=== PATIENT | female | born 1950 | race Caucasian/White ===

== ENCOUNTER → 2017-03-11 | Outpatient (CLI) | payer MEDICARE, OTHER ==
[~2017-03-11] MED LIST: ASPI81TA27 PO; ATOR80TA PO; CHOL500021 PO; CHOLPOW PO; CYCL1TAB18 PO; EST0625T PO; FLUO20CA19 PO; HYDR-2457 PO; IOHEXOL 350 MG/ML 100ML IJ ONE; LISI-285 PO; POTA10TA51 PO; READI-CAT 2 (BARIUM SULF)(VANILLA SMOOTHIE) 450ML ONE; TICA90TA PO; ZOLP10TA PO
[2017-03-11 10:50] VITALS: BP 129/71
[2017-03-11 11:40] VITALS: BP 137/84
== END | disposition home or self-care (01) ==
LOC: Rad HDHVI 10:20
PROVIDERS: ATTEND Internal Medicine Cardiovascular Disease
DX: K57.30 Diverticulosis of large intestine without perforation or abscess without bleeding (principal); K80.20 Calculus of gallbladder without cholecystitis without obstruction; M47.896 Other spondylosis, lumbar region; I74.5 Embolism and thrombosis of iliac artery; M25.551 Pain in right hip; M16.0 Bilateral primary osteoarthritis of hip; L72.3 Sebaceous cyst
CPT/HCPCS: 73700; 74177; G0463; Q9967

== ENCOUNTER → 2017-03-12 | Outpatient (CLI) | payer MEDICARE, OTHER ==
[~2017-03-12] MED LIST changes: -IOHEXOL 350 MG/ML 100ML IJ ONE; -READI-CAT 2 (BARIUM SULF)(VANILLA SMOOTHIE) 450ML ONE
== END | disposition home or self-care (01) ==
LOC: XYW 11:46
PROVIDERS: ATTEND Internal Medicine Cardiovascular Disease
DX: L97.529 Non-pressure chronic ulcer of other part of left foot with unspecified severity (principal); R10.31 Right lower quadrant pain; R06.02 Shortness of breath
CPT/HCPCS: 93926

== ENCOUNTER 2017-03-31 10:23 | Inpatient (IN) | payer MEDICARE, OTHER ==
[~2017-03-31] VITALS: Ht 170.2 cm; Wt 134.8 kg
[2017-03-31] MEDS ORDERED: SILVER SULFADIAZINE 1 % TOPICAL CREAM 50GM TOP ONE ×2 (10:27→13:30)
[2017-03-31] MEDS ORDERED: VANCOMYCIN 1GM/250ML D5W 250 ML IV ONE ×2 (10:27→11:25)
[2017-03-31] MEDS ORDERED: ONDANSETRON HCL 4 MG/2 ML VIAL IV ONE (10:35)
[2017-03-31] MEDS ORDERED: ONDANSETRON HCL 4 MG/2 ML VIAL ONE (10:37)
[2017-03-31 11:55] VITALS: BP 97/69
[2017-03-31 12:35] LABS: Basophils # (auto) 0 uL; Basophils % (auto) 0.4 % (0.0-2.0); Eosinophils # (auto) 0.2 uL; Eosinophils % (auto) 1.7 % (0.0-7.0); Hematocrit 37.7 % (36.0-46.0); Hemoglobin 12.9 g/dL (12.2-16.2); Lymphocytes # (auto) 2.1 uL; Lymphocytes % (auto) 22.5 % (10.0-50.0); Mean Corpuscular Hemoglobin 32.2 pg (28.0-32.0); Mean Corpuscular Hgb Conc. 34.3 g/dL (32.0-36.0); Mean Corpuscular Volume 93.9 fL (80.0-100.0); Mean Platelet Volume 8.8 fL (7.4-10.4); Monocytes # (auto) 0.8 uL; Monocytes % (auto) 8.5 % (0.0-12.0); Neutrophils # (auto) 6.4 uL; Neutrophils % (auto) 66.9 % (37.0-80.0); Platelet Count (auto) 307 10^3/uL (140-450); Red Cell Distribution Width 13.8 % (11.6-16.0); White Blood Cell 9.5 10^3/uL (4.4-10.8)
[2017-03-31 12:56] LABS: BUN/Creatinine Ratio 15.5; Calcium 9.5 mg/dL (8.5-10.1); Magnesium 2.1 mg/dL (1.6-2.6); Potassium 4.1 mmol/L (3.5-5.1)
[2017-03-31] MEDS ORDERED: NITROGLYCERIN 0.4 MG SL TAB SL PRN (14:15)
[2017-03-31] MEDS: SODIUM CHLORIDE 0.9% 1,000 ML IV SCH (14:15)
[2017-03-31] MEDS ORDERED: MORPHINE SULF INJ 2 MG/ML SYRINGE 1ML IV PRN (14:15)
[2017-03-31 14:55] LABS: Basophils # (auto) 0 uL; Basophils % (auto) 0.4 % (0.0-2.0); Eosinophils # (auto) 0.2 uL; Eosinophils % (auto) 2.1 % (0.0-7.0); Hematocrit 36.1 % (36.0-46.0); Hemoglobin 12.6 g/dL (12.2-16.2); Lymphocytes # (auto) 2.5 uL; Lymphocytes % (auto) 25.4 % (10.0-50.0); Mean Corpuscular Hemoglobin 32.8 pg (28.0-32.0); Mean Corpuscular Hgb Conc. 34.9 g/dL (32.0-36.0); Mean Corpuscular Volume 93.9 fL (80.0-100.0); Mean Platelet Volume 8.1 fL (7.4-10.4); Monocytes # (auto) 0.9 uL; Monocytes % (auto) 9.4 % (0.0-12.0); Neutrophils # (auto) 6.2 uL; Neutrophils % (auto) 62.7 % (37.0-80.0); Platelet Count (auto) 319 10^3/uL (140-450); Red Cell Distribution Width 13.2 % (11.6-16.0); White Blood Cell 9.8 10^3/uL (4.4-10.8)
[2017-03-31 15:19] LABS: Albumin 3.5 g/dL (3.4-5.0); BUN/Creatinine Ratio 13.4; Calcium 9.1 mg/dL (8.5-10.1); Potassium 4.2 mmol/L (3.5-5.1)
[2017-03-31 15:21] LABS: Bilirubin, Total 0.5 mg/dL (0.2-1.0); Total Protein 6.8 g/dL (6.4-8.2)
[2017-03-31] MEDS ORDERED: CLOP75TA41 PO (16:00)
[2017-03-31] MEDS ORDERED: FLUO20CA19 PO (16:02)
[2017-03-31] MEDS: ONDANSETRON HCL 4 MG/2 ML VIAL IV PRN (17:10)
[2017-03-31] MEDS: KETOROLAC TROMETH 30 MG/ML 1ML VIAL IV PRN (17:12)
[2017-03-31 20:00] VITALS: BP 108/56
[2017-03-31] MEDS: HYDROcodone-ACET 10/325MG TAB PO PRN (20:12)
[2017-03-31] MEDS ORDERED: CHL4PW GT (20:35)
[2017-03-31 22:00] VITALS: BP 106/56
[2017-03-31] MEDS: GABAPENTIN 300 MG CAP PO SCH (22:09)
[2017-03-31] MEDS: ZOLPIDEM TARTRATE 5 MG TAB PO PRN (22:09)
[2017-04-01 05:00] VITALS: BP 130/62
[2017-04-01] MEDS: GABAPENTIN 300 MG CAP PO SCH ×3 (06:32→21:28)
[2017-04-01] MEDS: KETOROLAC TROMETH 30 MG/ML 1ML VIAL IV PRN ×2 (06:39→16:49)
[2017-04-01 08:50] VITALS: BP 126/66
[2017-04-01] MEDS: LEVOFLOXACIN 500MG 100 ML IV SCH (09:46)
[2017-04-01] MEDS: predniSONE 20 MG TAB PO SCH (09:46)
[2017-04-01] MEDS: HCTZ 25 MG TAB PO SCH (09:47)
[2017-04-01] MEDS: LISINOPRIL 10 MG TAB PO SCH (09:47)
[2017-04-01] MEDS: POTASSIUM CHL 20 Meq TABLET PO SCH (09:47)
[2017-04-01] MEDS: ESTROGEN CONJ 0.3 MG TAB PO SCH (09:47)
[2017-04-01] MEDS: SODIUM CHLORIDE 0.9% 1,000 ML IV SCH (09:53)
[2017-04-01 12:38] VITALS: BP 112/63
[2017-04-01 16:38] VITALS: BP 116/68
[2017-04-01] MEDS: ONDANSETRON HCL 4 MG/2 ML VIAL IV PRN (16:51)
[2017-04-01] MEDS: HYDROcodone-ACET 10/325MG TAB PO PRN (21:28)
[2017-04-01 22:00] VITALS: BP 111/62
[2017-04-01] MEDS: ZOLPIDEM TARTRATE 5 MG TAB PO PRN (22:25)
[2017-04-02] MEDS: KETOROLAC TROMETH 30 MG/ML 1ML VIAL IV PRN ×4 (01:01→22:13)
[2017-04-02] MEDS: ONDANSETRON HCL 4 MG/2 ML VIAL IV PRN ×3 (01:01→17:24)
[2017-04-02 05:30] VITALS: BP 138/66
[2017-04-02] MEDS: GABAPENTIN 300 MG CAP PO SCH ×3 (05:54→22:12)
[2017-04-02] MEDS: SODIUM CHLORIDE 0.9% 1,000 ML IV SCH (05:55)
[2017-04-02 09:00] VITALS: BP 132/70
[2017-04-02] MEDS: ESTROGEN CONJ 0.3 MG TAB PO SCH (09:26)
[2017-04-02] MEDS: LEVOFLOXACIN 500MG 100 ML IV SCH (09:26)
[2017-04-02] MEDS: POTASSIUM CHL 20 Meq TABLET PO SCH (09:26)
[2017-04-02] MEDS: HCTZ 25 MG TAB PO SCH (09:27)
[2017-04-02] MEDS: predniSONE 20 MG TAB PO SCH (09:27)
[2017-04-02] MEDS: LISINOPRIL 10 MG TAB PO SCH (09:28)
[2017-04-02 13:00] VITALS: BP 136/68
[2017-04-02 17:00] VITALS: BP 120/71
[2017-04-02] MEDS: HYDROcodone-ACET 10/325MG TAB PO PRN (20:51)
[2017-04-02 22:00] VITALS: BP 130/55
[2017-04-02] MEDS: ZOLPIDEM TARTRATE 5 MG TAB PO PRN (22:13)
[2017-04-03 05:00] VITALS: BP 131/68
[2017-04-03] MEDS: SODIUM CHLORIDE 0.9% 1,000 ML IV SCH ×2 (05:21→22:56)
[2017-04-03] MEDS: ONDANSETRON HCL 4 MG/2 ML VIAL IV PRN (05:21)
[2017-04-03] MEDS: KETOROLAC TROMETH 30 MG/ML 1ML VIAL IV PRN ×3 (05:21→18:53)
[2017-04-03] MEDS: GABAPENTIN 300 MG CAP PO SCH ×3 (06:18→21:51)
[2017-04-03 09:00] VITALS: BP 134/81
[2017-04-03] MEDS: HYDROcodone-ACET 10/325MG TAB PO PRN ×2 (09:03→15:46)
[2017-04-03] MEDS: ESTROGEN CONJ 0.3 MG TAB PO SCH ×2 (10:00→15:46)
[2017-04-03] MEDS: POTASSIUM CHL 20 Meq TABLET PO SCH (10:40)
[2017-04-03] MEDS: predniSONE 20 MG TAB PO SCH (10:40)
[2017-04-03] MEDS: LISINOPRIL 10 MG TAB PO SCH (10:41)
[2017-04-03] MEDS: LEVOFLOXACIN 500MG 100 ML IV SCH (10:41)
[2017-04-03] MEDS: HCTZ 25 MG TAB PO SCH (10:41)
[2017-04-03 13:00] VITALS: BP 102/62
[2017-04-03] MEDS ORDERED: ASCORBIC ACID 500 MG TAB PO ONE (15:15)
[2017-04-03] MEDS ORDERED: MULTIPLE VITAMIN TAB PO ONE (15:15)
[2017-04-03 17:57] VITALS: BP 129/68
[2017-04-03] MEDS: PRO-STAT 64 30ML PO SCH (18:00)
[2017-04-03] MEDS: ASCORBIC ACID 500 MG TAB PO SCH (21:51)
[2017-04-03] MEDS: oxyCODONE ER 10 MG TAB PO SCH (21:51)
[2017-04-04] MEDS: ZOLPIDEM TARTRATE 5 MG TAB PO PRN ×2 (00:10→22:36)
[2017-04-04] MEDS: KETOROLAC TROMETH 30 MG/ML 1ML VIAL IV PRN ×4 (03:33→21:01)
[2017-04-04] MEDS: ONDANSETRON HCL 4 MG/2 ML VIAL IV PRN (03:38)
[2017-04-04 05:00] VITALS: BP 112/57
[2017-04-04] MEDS: GABAPENTIN 300 MG CAP PO SCH ×3 (05:41→21:38)
[2017-04-04] MEDS: oxyCODONE ER 10 MG TAB PO SCH ×3 (05:42→21:38)
[2017-04-04 08:00] VITALS: BP 110/67
[2017-04-04] MEDS: PRO-STAT 64 30ML PO SCH ×2 (08:00→17:46)
[2017-04-04 09:00] VITALS: BP 110/67
[2017-04-04] MEDS: LEVOFLOXACIN 500MG 100 ML IV SCH (10:20)
[2017-04-04] MEDS: POTASSIUM CHL 20 Meq TABLET PO SCH (10:22)
[2017-04-04] MEDS: HCTZ 25 MG TAB PO SCH (10:22)
[2017-04-04] MEDS: MULTIPLE VITAMIN TAB PO SCH (10:23)
[2017-04-04] MEDS: LISINOPRIL 10 MG TAB PO SCH (10:24)
[2017-04-04] MEDS: ASCORBIC ACID 500 MG TAB PO SCH ×2 (10:24→21:38)
[2017-04-04] MEDS: ESTROGEN CONJ 0.3 MG TAB PO SCH (10:24)
[2017-04-04] MEDS: predniSONE 20 MG TAB PO SCH (10:24)
[2017-04-04 13:00] VITALS: BP 128/64
[2017-04-04 17:00] VITALS: BP 126/69
[2017-04-04] MEDS: SODIUM CHLORIDE 0.9% 1,000 ML IV SCH (17:48)
[2017-04-04 22:00] VITALS: BP 114/64
[2017-04-05] MEDS: KETOROLAC TROMETH 30 MG/ML 1ML VIAL IV PRN ×2 (04:42→11:26)
[2017-04-05] MEDS: ONDANSETRON HCL 4 MG/2 ML VIAL IV PRN ×2 (04:45→14:11)
[2017-04-05 05:00] VITALS: BP 116/69
[2017-04-05] MEDS: oxyCODONE ER 10 MG TAB PO SCH ×3 (05:33→22:03)
[2017-04-05] MEDS: GABAPENTIN 300 MG CAP PO SCH ×3 (05:33→22:03)
[2017-04-05] MEDS: PRO-STAT 64 30ML PO SCH ×2 (08:00→18:00)
[2017-04-05 09:00] VITALS: BP 102/60
[2017-04-05] MEDS: MULTIPLE VITAMIN TAB PO SCH (11:01)
[2017-04-05] MEDS: LEVOFLOXACIN 500MG 100 ML IV SCH (11:01)
[2017-04-05] MEDS: predniSONE 20 MG TAB PO SCH (11:02)
[2017-04-05] MEDS: LISINOPRIL 10 MG TAB PO SCH (11:02)
[2017-04-05] MEDS: ASCORBIC ACID 500 MG TAB PO SCH ×2 (11:03→22:03)
[2017-04-05] MEDS: ESTROGEN CONJ 0.3 MG TAB PO SCH (11:03)
[2017-04-05] MEDS: POTASSIUM CHL 20 Meq TABLET PO SCH (11:03)
[2017-04-05] MEDS: HCTZ 25 MG TAB PO SCH (11:04)
[2017-04-05 13:00] VITALS: BP 119/58
[2017-04-05] MEDS: SODIUM CHLORIDE 0.9% 1,000 ML IV SCH (14:15)
[2017-04-05 17:02] VITALS: BP 101/50
[2017-04-05 21:58] VITALS: BP 104/56
[2017-04-05] MEDS: ZOLPIDEM TARTRATE 5 MG TAB PO PRN ×2 (22:10→23:54)
[2017-04-06 05:00] VITALS: BP 130/65
[2017-04-06] MEDS: oxyCODONE ER 10 MG TAB PO SCH ×3 (05:47→21:55)
[2017-04-06] MEDS: GABAPENTIN 300 MG CAP PO SCH ×3 (05:47→21:54)
[2017-04-06 08:00] VITALS: BP 101/60
[2017-04-06] MEDS: PRO-STAT 64 30ML PO SCH ×2 (08:00→18:29)
[2017-04-06 09:00] VITALS: BP 102/51
[2017-04-06] MEDS: SODIUM CHLORIDE 0.9% 1,000 ML IV SCH (10:25)
[2017-04-06] MEDS: LISINOPRIL 10 MG TAB PO SCH (10:27)
[2017-04-06] MEDS: ASCORBIC ACID 500 MG TAB PO SCH ×2 (10:27→21:55)
[2017-04-06] MEDS: MULTIPLE VITAMIN TAB PO SCH (10:27)
[2017-04-06] MEDS: HCTZ 25 MG TAB PO SCH (10:27)
[2017-04-06] MEDS: POTASSIUM CHL 20 Meq TABLET PO SCH (10:27)
[2017-04-06] MEDS: LEVOFLOXACIN 500MG 100 ML IV SCH (10:28)
[2017-04-06] MEDS: predniSONE 20 MG TAB PO SCH (10:28)
[2017-04-06] MEDS: ESTROGEN CONJ 0.3 MG TAB PO SCH (10:54)
[2017-04-06 13:00] VITALS: BP 120/62
[2017-04-06] MEDS: KETOROLAC TROMETH 30 MG/ML 1ML VIAL IV PRN (15:15)
[2017-04-06 17:00] VITALS: BP 127/77
[2017-04-06] MEDS: NAPROXEN 500 MG TAB PO SCH (21:54)
[2017-04-06 22:00] VITALS: BP 130/89
[2017-04-07] VITALS (7 sets, daily range): BP systolic 109–131; BP diastolic 44–79
[2017-04-07] MEDS: KETOROLAC TROMETH 30 MG/ML 1ML VIAL IV PRN ×3 (04:56→18:33)
[2017-04-07] MEDS: SODIUM CHLORIDE 0.9% 1,000 ML IV SCH (06:11)
[2017-04-07] MEDS: oxyCODONE ER 10 MG TAB PO SCH ×3 (06:11→21:32)
[2017-04-07] MEDS: GABAPENTIN 300 MG CAP PO SCH ×3 (06:11→21:32)
[2017-04-07] MEDS: PRO-STAT 64 30ML PO SCH ×2 (08:00→18:11)
[2017-04-07] MEDS: LEVOFLOXACIN 500MG 100 ML IV SCH (09:58)
[2017-04-07] MEDS: ESTROGEN CONJ 0.3 MG TAB PO SCH (10:00)
[2017-04-07] MEDS: POTASSIUM CHL 20 Meq TABLET PO SCH (10:01)
[2017-04-07] MEDS: predniSONE 20 MG TAB PO SCH (10:01)
[2017-04-07] MEDS: LISINOPRIL 10 MG TAB PO SCH (10:01)
[2017-04-07] MEDS: HYDROXYCHLOROQUINE SULFATE 200 MG TAB PO SCH (10:02)
[2017-04-07] MEDS: ASCORBIC ACID 500 MG TAB PO SCH ×2 (10:02→21:32)
[2017-04-07] MEDS: NAPROXEN 500 MG TAB PO SCH ×2 (10:02→21:33)
[2017-04-07] MEDS: HCTZ 25 MG TAB PO SCH (10:03)
[2017-04-07] MEDS: MULTIPLE VITAMIN TAB PO SCH (10:03)
[2017-04-07] MEDS: ONDANSETRON HCL 4 MG/2 ML VIAL IV PRN ×2 (12:25→22:50)
[2017-04-07] MEDS: ZOLPIDEM TARTRATE 5 MG TAB PO PRN (22:35)
[2017-04-08] MEDS: KETOROLAC TROMETH 30 MG/ML 1ML VIAL IV PRN ×3 (01:57→20:34)
[2017-04-08] MEDS: SODIUM CHLORIDE 0.9% 1,000 ML IV SCH ×2 (03:01→22:15)
[2017-04-08] MEDS: GABAPENTIN 300 MG CAP PO SCH ×3 (05:24→21:45)
[2017-04-08] MEDS: oxyCODONE ER 10 MG TAB PO SCH ×3 (05:25→21:45)
[2017-04-08 05:45] VITALS: BP 111/55
[2017-04-08 08:00] VITALS: BP 116/63
[2017-04-08] MEDS: PRO-STAT 64 30ML PO SCH ×2 (08:28→18:02)
[2017-04-08 08:53] VITALS: BP 116/63
[2017-04-08] MEDS: ESTROGEN CONJ 0.3 MG TAB PO SCH (10:00)
[2017-04-08] MEDS: LEVOFLOXACIN 500MG 100 ML IV SCH (10:03)
[2017-04-08] MEDS: POTASSIUM CHL 20 Meq TABLET PO SCH (10:03)
[2017-04-08] MEDS: NAPROXEN 500 MG TAB PO SCH (10:05)
[2017-04-08] MEDS: HYDROXYCHLOROQUINE SULFATE 200 MG TAB PO SCH (10:06)
[2017-04-08] MEDS: MULTIPLE VITAMIN TAB PO SCH (10:06)
[2017-04-08] MEDS: predniSONE 20 MG TAB PO SCH (10:06)
[2017-04-08] MEDS: LISINOPRIL 10 MG TAB PO SCH (10:06)
[2017-04-08] MEDS: HCTZ 25 MG TAB PO SCH (10:07)
[2017-04-08] MEDS: ASCORBIC ACID 500 MG TAB PO SCH ×2 (10:09→21:45)
[2017-04-08] MEDS: ONDANSETRON HCL 4 MG/2 ML VIAL IV PRN (12:03)
[2017-04-08 12:49] VITALS: BP 114/56
[2017-04-08 16:56] VITALS: BP 94/58
[2017-04-08 22:00] VITALS: BP 110/44
[2017-04-08] MEDS: ZOLPIDEM TARTRATE 5 MG TAB PO PRN (23:53)
[2017-04-09] MEDS: ONDANSETRON HCL 4 MG/2 ML VIAL IV PRN (03:27)
[2017-04-09 05:30] VITALS: BP 129/70
[2017-04-09] MEDS: oxyCODONE ER 10 MG TAB PO SCH ×3 (05:35→21:34)
[2017-04-09] MEDS: GABAPENTIN 300 MG CAP PO SCH ×3 (05:35→21:34)
[2017-04-09 09:00] VITALS: BP 157/87
[2017-04-09] MEDS: PRO-STAT 64 30ML PO SCH ×2 (09:53→18:00)
[2017-04-09] MEDS: ESTROGEN CONJ 0.3 MG TAB PO SCH (10:00)
[2017-04-09] MEDS: LISINOPRIL 10 MG TAB PO SCH (10:27)
[2017-04-09] MEDS: HCTZ 25 MG TAB PO SCH (10:28)
[2017-04-09] MEDS: predniSONE 20 MG TAB PO SCH (10:29)
[2017-04-09] MEDS: MULTIPLE VITAMIN TAB PO SCH (10:32)
[2017-04-09] MEDS: ASCORBIC ACID 500 MG TAB PO SCH ×2 (10:32→21:33)
[2017-04-09] MEDS: HYDROXYCHLOROQUINE SULFATE 200 MG TAB PO SCH (10:32)
[2017-04-09] MEDS: POTASSIUM CHL 20 Meq TABLET PO SCH (10:32)
[2017-04-09 13:00] VITALS: BP 126/61
[2017-04-09 16:35] VITALS: BP 101/57
[2017-04-09] MEDS: SODIUM CHLORIDE 0.9% 1,000 ML IV SCH (18:15)
[2017-04-09] MEDS: KETOROLAC TROMETH 30 MG/ML 1ML VIAL IV PRN (20:31)
[2017-04-09 22:00] VITALS: BP 115/68
[2017-04-09] MEDS: ZOLPIDEM TARTRATE 5 MG TAB PO PRN (23:43)
[2017-04-10] MEDS: GABAPENTIN 300 MG CAP PO SCH ×3 (05:26→21:38)
[2017-04-10] MEDS: oxyCODONE ER 10 MG TAB PO SCH ×3 (05:26→21:39)
[2017-04-10 05:30] VITALS: BP 145/76
[2017-04-10] MEDS: PRO-STAT 64 30ML PO SCH ×2 (08:00→17:40)
[2017-04-10 09:00] VITALS: BP 112/59
[2017-04-10] MEDS: ASCORBIC ACID 500 MG TAB PO SCH ×2 (09:31→21:39)
[2017-04-10] MEDS: POTASSIUM CHL 20 Meq TABLET PO SCH (09:31)
[2017-04-10] MEDS: HYDROXYCHLOROQUINE SULFATE 200 MG TAB PO SCH (09:31)
[2017-04-10] MEDS: LISINOPRIL 10 MG TAB PO SCH (09:32)
[2017-04-10] MEDS: predniSONE 20 MG TAB PO SCH (09:32)
[2017-04-10] MEDS: HCTZ 25 MG TAB PO SCH (09:32)
[2017-04-10] MEDS: MULTIPLE VITAMIN TAB PO SCH ×2 (09:32→21:38)
[2017-04-10] MEDS: KETOROLAC TROMETH 30 MG/ML 1ML VIAL IV PRN (09:34)
[2017-04-10] MEDS: ESTROGEN CONJ 0.3 MG TAB PO SCH (10:00)
[2017-04-10 13:00] VITALS: BP 143/49
[2017-04-10] MEDS: ONDANSETRON HCL 4 MG/2 ML VIAL IV PRN (14:36)
[2017-04-10] MEDS: SODIUM CHLORIDE 0.9% 1,000 ML IV SCH (14:55)
[2017-04-10 17:00] VITALS: BP 132/62
[2017-04-10] MEDS: ZOLPIDEM TARTRATE 5 MG TAB PO PRN (21:38)
[2017-04-10 22:00] VITALS: BP 142/80
[2017-04-11 05:00] VITALS: BP 134/67
[2017-04-11] MEDS: oxyCODONE ER 10 MG TAB PO SCH ×2 (05:30→13:34)
[2017-04-11] MEDS: GABAPENTIN 300 MG CAP PO SCH ×2 (05:30→13:33)
[2017-04-11 08:00] VITALS: BP 145/76
[2017-04-11] MEDS: PRO-STAT 64 30ML PO SCH (08:00)
[2017-04-11 09:00] VITALS: BP 139/66
[2017-04-11] MEDS: KETOROLAC TROMETH 30 MG/ML 1ML VIAL IV PRN (09:27)
[2017-04-11] MEDS: ASCORBIC ACID 500 MG TAB PO SCH (09:47)
[2017-04-11] MEDS: HCTZ 25 MG TAB PO SCH (09:48)
[2017-04-11] MEDS: POTASSIUM CHL 20 Meq TABLET PO SCH (09:48)
[2017-04-11] MEDS: ESTROGEN CONJ 0.3 MG TAB PO SCH (09:49)
[2017-04-11] MEDS: LISINOPRIL 10 MG TAB PO SCH (09:49)
[2017-04-11] MEDS: predniSONE 20 MG TAB PO SCH (09:49)
[2017-04-11] MEDS: HYDROXYCHLOROQUINE SULFATE 200 MG TAB PO SCH (09:49)
[2017-04-11] MEDS: MULTIPLE VITAMIN TAB PO SCH (09:49)
[2017-04-11 13:00] VITALS: BP 124/64
[2017-04-11] MEDS ORDERED: KETOROLAC TROMETH 30 MG/ML 1ML VIAL IV ONE (14:30)
[2017-04-11 15:17] VITALS: BP 139/66
== END 2017-04-11 16:00 | disposition home or self-care (01) | DRG 546 ==
LOC: CHF HDHVI 10:23 → EDSTATUS 13:50 → TELE-E-ADS 13:51 → TELE-WESTW 17:35
PROVIDERS: ADMIT Internal Medicine Cardiovascular Disease; ATTEND Internal Medicine Cardiovascular Disease
DX: M06.851 Other specified rheumatoid arthritis, right hip (principal); L03.90 Cellulitis, unspecified; Z68.42 Body mass index [BMI] 45.0-49.9, adult; I73.9 Peripheral vascular disease, unspecified; M16.11 Unilateral primary osteoarthritis, right hip; E66.9 Obesity, unspecified; E78.5 Hyperlipidemia, unspecified; J44.9 Chronic obstructive pulmonary disease, unspecified; D64.9 Anemia, unspecified; G62.9 Polyneuropathy, unspecified; G89.4 Chronic pain syndrome; I11.9 Hypertensive heart disease without heart failure; F17.210 Nicotine dependence, cigarettes, uncomplicated; I25.10 Atherosclerotic heart disease of native coronary artery without angina pectoris; M21.611 Bunion of right foot; Z91.19 Patient's noncompliance with other medical treatment and regimen; Z71.6 Tobacco abuse counseling; Z79.899 Other long term (current) drug therapy; Z95.5 Presence of coronary angioplasty implant and graft; Z71.3 Dietary counseling and surveillance
CPT/HCPCS: 36415; 71010; 73502; 73630; 80048; 80053; 83735; 85025; 87077; 87186; 87205; 96365; 96375; G0463; J1885; J1956; J2405

== ENCOUNTER 2017-04-11 22:24 | Inpatient (IN) | payer MEDICARE, OTHER ==
[~2017-04-11] VITALS: Ht 170.2 cm; Wt 129.4 kg
[~2017-04-11 22:24] MED LIST changes: +CHL4PW GT; +CLOP75TA41 PO
[2017-04-11] MEDS ORDERED: ONDANSETRON HCL 4 MG/2 ML VIAL IV ONE (23:15)
[2017-04-11] MEDS ORDERED: MORPHINE SULFATE 4 MG/ML SYRG IV ONE (23:15)
[2017-04-11 23:28] LABS: Basophils # (auto) 0.1 uL; Basophils % (auto) 0.4 % (0.0-2.0); Eosinophils # (auto) 0 uL; Eosinophils % (auto) 0.2 % (0.0-7.0); Hematocrit 31.3 % (36.0-46.0); Hemoglobin 10.6 g/dL (12.2-16.2); Lymphocytes # (auto) 2.2 uL; Lymphocytes % (auto) 11.9 % (10.0-50.0); Mean Corpuscular Hemoglobin 32.3 pg (28.0-32.0); Mean Corpuscular Hgb Conc. 33.8 g/dL (32.0-36.0); Mean Corpuscular Volume 95.4 fL (80.0-100.0); Mean Platelet Volume 7.8 fL (7.4-10.4); Monocytes # (auto) 1.1 uL; Monocytes % (auto) 6.1 % (0.0-12.0); Neutrophils # (auto) 15.2 uL; Neutrophils % (auto) 81.4 % (37.0-80.0); Platelet Count (auto) 373 10^3/uL (140-450); White Blood Cell 18.7 10^3/uL (4.4-10.8)
[2017-04-11 23:46] LABS: INR 0.93 (0.9-1.15); Partial Thromboplastin Time 23.8 sec (22.64-33.71); Prothrombin Time 10.1 sec (9.37-12.3)
[2017-04-11 23:52] LABS: Alkaline Phosphatase 84 U/L (45-117); Anion Gap 7 (5-15); Aspartate Aminotransferase 14 U/L (15-37); BUN/Creatinine Ratio 30.2; Bilirubin, Total 0.3 mg/dL (0.2-1.0); Blood Urea Nitrogen 32 mg/dL (7-18); Calcium 8.7 mg/dL (8.5-10.1); Carbon Dioxide 31 mmol/L (21-32); Chloride 101 mmol/L (98-107); GFR African American 66 mL/min; GFR Non-African American 55 mL/min; Glucose 114 mg/dL (74-106); Magnesium 2.2 mg/dL (1.6-2.6); Sodium 139 mmol/L (136-145); Total Protein 6.5 g/dL (6.4-8.2)
[2017-04-11 23:57] LABS: Temperature: 22.9 C (20.0-25.0)
[2017-04-12 00:33] LABS: Urine RBC None Seen /hpf (0 - 4)
[2017-04-12 00:54] LABS: Urine Bilirubin Negative (Negative); Urine Blood Negative /uL (Negative); Urine Color Yellow (Yellow); Urine Glucose Normal (Normal); Urine Ketone Negative (Negative); Urine Mucus FEW (None Seen); Urine Nitrite Negative (Negative); Urine Squamous Epithelial Cell FEW /hpf (<5); Urine Urobilinogen Normal (Negative)
[2017-04-12] MEDS ORDERED: cefTRIAXone 1GM/50ML D5W 50 ML IV ONE (03:30)
[2017-04-12 03:54] LABS: Base Excess 4.8 mmol/L (-2.0-2.0); Blood 02Sat 94.4 % (96-100); Blood COHb 0.6 % (0.5-1.5); Blood MetHb 0.2 % (0.0-1.5); HCO3 29.9 mmol/L (22-26.0); HHb 5.6 % (0.0-5.0); MODE NASAL CANNULA; O2Hb 93.6 % (94.0-97.0); PCO2 46.4 mmHg (35.0-45.0); PCO2(T) 46.4 mmHg (35.0-45.0); Sample Type Arterial; pH 7.427 (7.350-7.450)
[2017-04-12] MEDS ORDERED: ONDANSETRON HCL 4 MG/2 ML VIAL ONE (06:01)
[2017-04-12] MEDS ORDERED: ONDANSETRON HCL 4 MG/2 ML VIAL IV ONE (06:15)
[2017-04-12] MEDS ORDERED: VANCOMYCIN 1GM/250ML D5W 250 ML IV ONE (06:15)
[2017-04-12] MEDS ORDERED: VANCOMYCIN PER PHARMACY 0 MG IV SCH (10:15)
[2017-04-12] MEDS ORDERED: NITROGLYCERIN 0.4 MG SL TAB SL PRN (10:15)
[2017-04-12] MEDS ORDERED: MORPHINE SULF INJ 2 MG/ML SYRINGE 1ML IV PRN (10:15)
[2017-04-12] MEDS: cefTRIAXone 1GM/50ML D5W 50 ML IV SCH (10:41)
[2017-04-12] MEDS ORDERED: oxyCODONE ER 20 MG TAB PO SCH ×2 (11:00→22:00)
[2017-04-12] MEDS ORDERED: oxyCODONE ER 10 MG TAB PO SCH (11:00)
[2017-04-12 13:00] VITALS: BP 134/59
[2017-04-12] MEDS ORDERED: FUROSEMIDE 40 MG/4 ML VIAL IV ONE (15:45)
[2017-04-12 16:49] VITALS: BP 106/55
[2017-04-12] MEDS: FUROSEMIDE 40 MG/4 ML VIAL IV SCH (17:47)
[2017-04-12] MEDS: VANCOMYCIN 1GM/250ML D5W 250 ML IV SCH (17:48)
[2017-04-12] MEDS: POTASSIUM CHL 20 Meq TABLET PO SCH (21:41)
[2017-04-12 22:00] VITALS: BP 111/58
[2017-04-13 06:04] VITALS: BP 122/66
[2017-04-13] MEDS: FUROSEMIDE 40 MG/4 ML VIAL IV SCH ×2 (06:07→17:43)
[2017-04-13] MEDS: VANCOMYCIN 1GM/250ML D5W 250 ML IV SCH ×2 (06:07→17:43)
[2017-04-13 06:19] LABS: Basophils # (auto) 0 uL; Basophils % (auto) 0.3 % (0.0-2.0); Eosinophils # (auto) 0.2 uL; Eosinophils % (auto) 1.4 % (0.0-7.0); Hematocrit 29.4 % (36.0-46.0); Lymphocytes # (auto) 3.3 uL; Lymphocytes % (auto) 21.1 % (10.0-50.0); Mean Corpuscular Hemoglobin 32.3 pg (28.0-32.0); Mean Corpuscular Volume 95.2 fL (80.0-100.0); Mean Platelet Volume 7.9 fL (7.4-10.4); Monocytes # (auto) 1.4 uL; Monocytes % (auto) 8.5 % (0.0-12.0); Neutrophils # (auto) 10.9 uL; Neutrophils % (auto) 68.7 % (37.0-80.0); Platelet Count (auto) 349 10^3/uL (140-450); White Blood Cell 15.8 10^3/uL (4.4-10.8)
[2017-04-13 06:35] LABS: Calcium 8.5 mg/dL (8.5-10.1); Potassium 5.1 mmol/L (3.5-5.1)
[2017-04-13 06:38] LABS: BUN/Creatinine Ratio 27.4
[2017-04-13] MEDS: oxyCODONE ER 20 MG TAB PO PRN ×2 (08:13→17:43)
[2017-04-13 09:00] VITALS: BP 98/58
[2017-04-13] MEDS: POTASSIUM CHL 20 Meq TABLET PO SCH ×2 (10:00→21:40)
[2017-04-13] MEDS: cefTRIAXone 1GM/50ML D5W 50 ML IV SCH (10:20)
[2017-04-13 13:00] VITALS: BP 131/71
[2017-04-13] MEDS: ONDANSETRON HCL 4 MG/2 ML VIAL IV PRN ×2 (13:22→17:43)
[2017-04-13 17:00] VITALS: BP 131/68
[2017-04-13] MEDS: ZOLPIDEM TARTRATE 5 MG TAB PO PRN (21:40)
[2017-04-13 22:00] VITALS: BP 116/61
[2017-04-14 05:00] VITALS: BP 131/66
[2017-04-14] MEDS: VANCOMYCIN 750 MG in D5W 5% 250 ML IV SCH ×2 (05:42→19:34)
[2017-04-14] MEDS: FUROSEMIDE 40 MG/4 ML VIAL IV SCH ×2 (05:43→19:45)
[2017-04-14 09:00] VITALS: BP 123/73
[2017-04-14] MEDS: ONDANSETRON HCL 4 MG/2 ML VIAL IV PRN ×2 (10:08→19:45)
[2017-04-14] MEDS: POTASSIUM CHL 20 Meq TABLET PO SCH ×2 (10:12→21:32)
[2017-04-14] MEDS: oxyCODONE ER 20 MG TAB PO PRN (10:13)
[2017-04-14] MEDS: cefTRIAXone 1GM/50ML D5W 50 ML IV SCH (10:21)
[2017-04-14 13:00] VITALS: BP 108/45
[2017-04-14] MEDS: KETOROLAC TROMETH 30 MG/ML 1ML VIAL IV PRN (13:28)
[2017-04-14 17:00] VITALS: BP 104/52
[2017-04-14 21:03] VITALS: BP 126/54
[2017-04-14] MEDS: ZOLPIDEM TARTRATE 5 MG TAB PO PRN (21:32)
[2017-04-15 04:52] VITALS: BP 131/99
[2017-04-15] MEDS: FUROSEMIDE 40 MG/4 ML VIAL IV SCH (05:32)
[2017-04-15] MEDS: ONDANSETRON HCL 4 MG/2 ML VIAL IV PRN ×2 (05:32→09:55)
[2017-04-15] MEDS: VANCOMYCIN 750 MG in D5W 5% 250 ML IV SCH (05:32)
[2017-04-15] MEDS: oxyCODONE ER 20 MG TAB PO PRN ×2 (05:40→14:51)
[2017-04-15 08:00] VITALS: BP 130/69
[2017-04-15 09:00] VITALS: BP 130/69
[2017-04-15] MEDS: cefTRIAXone 1GM/50ML D5W 50 ML IV SCH (09:50)
[2017-04-15] MEDS: POTASSIUM CHL 20 Meq TABLET PO SCH (09:50)
[2017-04-15] MEDS: KETOROLAC TROMETH 30 MG/ML 1ML VIAL IV PRN (11:46)
[2017-04-15 13:00] VITALS: BP 135/58
[2017-04-15 17:03] VITALS: BP 116/57
[2017-04-15 17:22] VITALS: BP 116/57
== END 2017-04-15 17:30 | disposition home or self-care (01) | DRG 871 ==
LOC: ER 22:26 → OVERFLOW 22:27 → EAST 04-12 11:00
PROVIDERS: ADMIT Internal Medicine Cardiovascular Disease; ATTEND Internal Medicine Cardiovascular Disease
DX: A41.9 Sepsis, unspecified organism (principal); I50.43 Acute on chronic combined systolic (congestive) and diastolic (congestive) heart failure; L03.90 Cellulitis, unspecified; Z68.41 Body mass index [BMI] 40.0-44.9, adult; M25.559 Pain in unspecified hip; E78.5 Hyperlipidemia, unspecified; G89.4 Chronic pain syndrome; I11.0 Hypertensive heart disease with heart failure; I73.9 Peripheral vascular disease, unspecified; J44.9 Chronic obstructive pulmonary disease, unspecified; M06.9 Rheumatoid arthritis, unspecified; I50.9 Heart failure, unspecified; M19.90 Unspecified osteoarthritis, unspecified site; E66.9 Obesity, unspecified; G62.9 Polyneuropathy, unspecified; Z79.899 Other long term (current) drug therapy; Z88.0 Allergy status to penicillin; Z91.040 Latex allergy status; Z72.0 Tobacco use; Z71.3 Dietary counseling and surveillance
CPT/HCPCS: 36415; 36600; 70450; 71010; 80048; 80053; 80202; 81001; 82805; 83605; 83735; 83880; 84484; 85025; 85379; 85610; 85730; 87040; 87081; 93005; 96365; 96375; J0696; J1885; J2405; J7060

== ENCOUNTER → 2017-12-11 | Outpatient (CLI) | payer MEDICARE, OTHER ==
[~2017-12-11] MED LIST changes: -ASPI81TA27 PO; -ATOR80TA PO; -CHOLPOW PO; -TICA90TA PO
== END ==
LOC: Rad HDHVI 09:55
PROVIDERS: ATTEND Internal Medicine Cardiovascular Disease
DX: M19.012 Primary osteoarthritis, left shoulder (principal); M75.92 Shoulder lesion, unspecified, left shoulder; W19.XXXA Unspecified fall, initial encounter; Y93.89 Activity, other specified; Y92.89 Other specified places as the place of occurrence of the external cause; Y99.8 Other external cause status
CPT/HCPCS: 73200

== ENCOUNTER → 2017-12-22 | Outpatient (CLI) | payer MEDICARE, OTHER ==
[~2017-12-22] VITALS: Ht 170.2 cm; Wt 111.1 kg
[~2017-12-22] MED LIST changes: +ADENOSINE 90 MG/30 ML INJ IV ONE; +ADENOSINE 93 MG in GIVE UN-DILUTED 0 ML IV ONE
[2017-12-22 12:52] LABS: Basophils # (auto) 0.1 uL; Basophils % (auto) 0.8 % (0.0-2.0); Eosinophils # (auto) 0.2 uL; Eosinophils % (auto) 2.3 % (0.0-7.0); Hematocrit 36.3 % (36.0-46.0); Hemoglobin 12.4 g/dL (12.2-16.2); Lymphocytes % (auto) 30.2 % (10.0-50.0); Mean Corpuscular Hemoglobin 32.6 pg (28.0-32.0); Mean Corpuscular Hgb Conc. 34.1 g/dL (32.0-36.0); Mean Corpuscular Volume 95.5 fL (80.0-100.0); Monocytes # (auto) 0.8 uL; Monocytes % (auto) 7.9 % (0.0-12.0); Neutrophils # (auto) 5.8 uL; Neutrophils % (auto) 58.8 % (37.0-80.0); Platelet Count (auto) 272 10^3/uL (140-450); Red Cell Distribution Width 13.5 % (11.8-14.3); White Blood Cell 9.8 10^3/uL (4.4-10.8)
[2017-12-22 13:12] LABS: Free T4 (Free Thyroxine) 1.12 ng/dL (0.89-1.76)
[2017-12-22 13:33] LABS: Albumin 3.3 g/dL (3.4-5.0); BUN/Creatinine Ratio 12.9; Bilirubin, Total 0.3 mg/dL (0.2-1.0); Calcium 9.6 mg/dL (8.5-10.1); Potassium 3.9 mmol/L (3.5-5.1); Total Protein 7.1 g/dL (6.4-8.2)
[2017-12-22 17:14] LABS: Urine Blood Negative /uL (Negative); Urine Specific Gravity 1.017 (1.001-1.035)
== END | disposition home or self-care (01) ==
LOC: Rad HDHVI 10:00
PROVIDERS: ATTEND Internal Medicine Cardiovascular Disease
DX: R07.9 Chest pain, unspecified (principal); J44.9 Chronic obstructive pulmonary disease, unspecified; I27.21 Secondary pulmonary arterial hypertension; E78.00 Pure hypercholesterolemia, unspecified; D64.9 Anemia, unspecified; I10 Essential (primary) hypertension; E11.9 Type 2 diabetes mellitus without complications; E55.9 Vitamin D deficiency, unspecified; E03.9 Hypothyroidism, unspecified; D51.9 Vitamin B12 deficiency anemia, unspecified; N39.0 Urinary tract infection, site not specified
CPT/HCPCS: 36415; 78452; 80053; 80061; 81003; 82306; 82607; 83036; 84439; 84443; 85025; 93005; 93306; 96374; 96375; A9500; J0153

== ENCOUNTER 2018-09-09 07:09 | Inpatient (IN) | payer MEDICARE, OTHER ==
[~2018-09-09] VITALS: Ht 170.2 cm; Wt 106.0 kg
[~2018-09-09 07:09] MED LIST changes: -ADENOSINE 90 MG/30 ML INJ IV ONE; -ADENOSINE 93 MG in GIVE UN-DILUTED 0 ML IV ONE; +MORP15TA PO
[2018-09-09] MEDS ORDERED: SODIUM CHLORIDE 0.9% 500 ML IVB ONE (07:13)
[2018-09-09] MEDS ORDERED: ONDANSETRON HCL 4 MG/2 ML VIAL IV ONE (07:15)
[2018-09-09] MEDS ORDERED: MORPHINE SULFATE 4 MG/ML SYR/VIAL IV ONE (07:15)
[2018-09-09 08:11] LABS: Basophils # (auto) 0.1 uL; Basophils % (auto) 0.4 % (0.0-2.0); Eosinophils # (auto) 0 uL; Eosinophils % (auto) 0.4 % (0.0-7.0); Hematocrit 37.5 % (36.0-46.0); Hemoglobin 12.5 g/dL (12.2-16.2); Lymphocytes # (auto) 1.8 uL; Lymphocytes % (auto) 14.3 % (10.0-50.0); Mean Corpuscular Hemoglobin 31.7 pg (28.0-32.0); Mean Corpuscular Hgb Conc. 33.3 g/dL (32.0-36.0); Mean Corpuscular Volume 95.1 fL (80.0-100.0); Monocytes # (auto) 1.2 uL; Neutrophils # (auto) 9.4 uL; Neutrophils % (auto) 74.9 % (37.0-80.0); Nucleated Red Blood Cells % 0.1 %; Platelet Count (auto) 375 10^3/uL (140-450); Red Blood Cells 3.94 10^6/uL (4.0-5.20); Red Cell Distribution Width 13.1 % (11.8-14.3); White Blood Cell 12.5 10^3/uL (4.4-10.8)
[2018-09-09] MEDS ORDERED: IOHEXOL 300 MG/ML 100ML BOTTLE IJ ONE (08:26)
[2018-09-09 08:28] LABS: Potassium 3.6 mmol/L (3.5-5.1)
[2018-09-09 08:34] LABS: Albumin 2.9 g/dL (3.4-5.0); BUN/Creatinine Ratio 11.1; Bilirubin, Total 0.4 mg/dL (0.2-1.0); Calcium 9.1 mg/dL (8.5-10.1); Magnesium 1.5 mg/dL (1.6-2.6); Total Protein 6.9 g/dL (6.4-8.2)
[2018-09-09] MEDS: CHOLECALCIFEROL (VITD3) 1,000 UNIT TAB PO SCH (10:00)
[2018-09-09] MEDS: FLUoxetine HCL 20 MG CAP PO SCH (10:00)
[2018-09-09] MEDS ORDERED: NITROGLYCERIN 0.4 MG SL TAB SL PRN (11:45)
[2018-09-09] MEDS ORDERED: MORPHINE SULFATE 4 MG/ML SYR/VIAL IV PRN (11:45)
[2018-09-09] MEDS ORDERED: DEXTROSE (50%) 50ML SYRG IV PRN (11:45)
[2018-09-09] MEDS: SODIUM CHLORIDE 0.9% 1,000 ML IV SCH (11:45)
[2018-09-09] MEDS ORDERED: HCTZ 25 MG TAB PO ONE (12:30)
[2018-09-09] MEDS ORDERED: CLOPIDOGREL BISULFATE 75 MG TAB PO ONE (12:30)
[2018-09-09] MEDS ORDERED: CHOLESTYRAMINE 4 GM POWDER GT ONE (12:30)
[2018-09-09] MEDS ORDERED: LISINOPRIL 10 MG TAB PO ONE (12:30)
[2018-09-09] MEDS: POTASSIUM CHL 20 Meq TABLET PO SCH ×2 (13:48→21:29)
[2018-09-09] MEDS: MORPHINE SULF 15mg ER tab PO SCH (13:49)
[2018-09-09] MEDS: CYCLOBENZAPRINE HCL 10 MG TAB PO SCH (13:50)
[2018-09-09] MEDS: ceFAZolin 1GM/50ML 50 ML IV SCH ×2 (13:50→21:29)
[2018-09-09 17:00] VITALS: BP 136/67
[2018-09-09] MEDS: InsuLIN REG 1unit/0.01ml Soln (100units/ml) SC SCH ×2 (17:00→21:33)
[2018-09-09] MEDS: ACCU-CHEK COMFORT CURVE STRIP VI SCH ×2 (17:26→21:34)
[2018-09-09] MEDS: HYDROcodone-ACET 10/325MG TAB PO PRN (21:29)
[2018-09-09] MEDS: ZOLPIDEM TARTRATE 5 MG TAB PO PRN (21:29)
[2018-09-09 22:00] VITALS: BP 127/59
[2018-09-10] MEDS: MORPHINE SULF 15mg ER tab PO SCH ×2 (00:51→12:33)
[2018-09-10] MEDS: ceFAZolin 1GM/50ML 50 ML IV SCH ×3 (04:59→21:18)
[2018-09-10] MEDS: ALPRAZolam 0.25 MG TAB PO PRN (04:59)
[2018-09-10 05:04] VITALS: BP 118/71
[2018-09-10] MEDS: ACCU-CHEK COMFORT CURVE STRIP VI SCH ×4 (06:53→21:29)
[2018-09-10] MEDS: InsuLIN REG 1unit/0.01ml Soln (100units/ml) SC SCH ×4 (06:54→21:29)
[2018-09-10] MEDS: SODIUM CHLORIDE 0.9% 1,000 ML IV SCH (07:45)
[2018-09-10 07:59] VITALS: BP 116/60
[2018-09-10] MEDS: CHOLESTYRAMINE 4 GM POWDER GT SCH (09:22)
[2018-09-10] MEDS: HCTZ 25 MG TAB PO SCH (11:10)
[2018-09-10] MEDS: POTASSIUM CHL 20 Meq TABLET PO SCH ×2 (11:11→21:18)
[2018-09-10] MEDS: LISINOPRIL 10 MG TAB PO SCH (11:11)
[2018-09-10] MEDS: CHOLECALCIFEROL (VITD3) 1,000 UNIT TAB PO SCH (11:12)
[2018-09-10] MEDS: FLUoxetine HCL 20 MG CAP PO SCH (11:12)
[2018-09-10] MEDS: CLOPIDOGREL BISULFATE 75 MG TAB PO SCH (11:12)
[2018-09-10] MEDS: NICOTINE 21MG/24 HR TOPICAL PATCH TD SCH (11:13)
[2018-09-10 11:34] VITALS: BP 117/62
[2018-09-10] MEDS: CYCLOBENZAPRINE HCL 10 MG TAB PO SCH (13:54)
[2018-09-10 16:20] VITALS: BP 118/64
[2018-09-10] MEDS: HYDROmorphone HCL 2 MG/ML VL IV PRN (17:13)
[2018-09-10] MEDS: HYDROcodone-ACET 10/325MG TAB PO PRN (21:27)
[2018-09-10 21:39] VITALS: BP 109/57
[2018-09-11] MEDS: MORPHINE SULF 15mg ER tab PO SCH ×2 (01:05→12:35)
[2018-09-11 04:41] VITALS: BP 137/72
[2018-09-11] MEDS: ceFAZolin 1GM/50ML 50 ML IV SCH ×3 (05:27→21:40)
[2018-09-11] MEDS: SODIUM CHLORIDE 0.9% 1,000 ML IV SCH ×2 (05:28→23:45)
[2018-09-11] MEDS: InsuLIN REG 1unit/0.01ml Soln (100units/ml) SC SCH ×4 (05:28→21:42)
[2018-09-11] MEDS: HYDROmorphone HCL 2 MG/ML VL IV PRN ×3 (05:28→21:47)
[2018-09-11 05:39] LABS: Hematocrit 35.4 % (36.0-46.0); Hemoglobin 12.3 g/dL (12.2-16.2); Mean Corpuscular Hemoglobin 32.9 pg (28.0-32.0); Mean Corpuscular Hgb Conc. 34.8 g/dL (32.0-36.0); Mean Corpuscular Volume 94.6 fL (80.0-100.0); Platelet Count (auto) 390 10^3/uL (140-450); Red Blood Cells 3.74 10^6/uL (4.0-5.20); Red Cell Distribution Width 13.4 % (11.8-14.3); White Blood Cell 8.1 10^3/uL (4.4-10.8)
[2018-09-11] MEDS: ACCU-CHEK COMFORT CURVE STRIP VI SCH ×4 (05:40→21:43)
[2018-09-11 05:42] LABS: Band Neutrophils % (manual) 0; Basophils % (manual) 0 (0.0-2.0); Blast Cells 0; Myelocytes % 0; Promyelocytes % 0; Reactive Lymphocytes 0
[2018-09-11 06:02] LABS: Albumin 2.7 g/dL (3.4-5.0); Calcium 8.9 mg/dL (8.5-10.1); Potassium 4.2 mmol/L (3.5-5.1)
[2018-09-11 06:05] LABS: BUN/Creatinine Ratio 9.2
[2018-09-11 06:08] LABS: Bilirubin, Total 0.4 mg/dL (0.2-1.0); Total Protein 6.7 g/dL (6.4-8.2)
[2018-09-11 07:46] LABS: Eosinophils % (manual) 3 (0-7); Lymphocytes % (manual) 34 (10.0-50.0); Metamyelocytes % 1; Monocytes % (manual) 5 (0-12)
[2018-09-11] MEDS: ALPRAZolam 0.25 MG TAB PO PRN (08:40)
[2018-09-11 09:00] VITALS: BP 123/67
[2018-09-11] MEDS: CLOPIDOGREL BISULFATE 75 MG TAB PO SCH (09:42)
[2018-09-11] MEDS: FLUoxetine HCL 20 MG CAP PO SCH (09:42)
[2018-09-11] MEDS: CHOLECALCIFEROL (VITD3) 1,000 UNIT TAB PO SCH (09:43)
[2018-09-11] MEDS: LISINOPRIL 10 MG TAB PO SCH (09:44)
[2018-09-11] MEDS: HCTZ 25 MG TAB PO SCH (09:45)
[2018-09-11] MEDS: POTASSIUM CHL 20 Meq TABLET PO SCH ×2 (09:45→21:42)
[2018-09-11] MEDS: NICOTINE 21MG/24 HR TOPICAL PATCH TD SCH (09:52)
[2018-09-11] MEDS: CHOLESTYRAMINE 4 GM POWDER GT SCH (10:00)
[2018-09-11 12:16] VITALS: BP 137/69
[2018-09-11] MEDS: CYCLOBENZAPRINE HCL 10 MG TAB PO SCH (14:05)
[2018-09-11 16:53] VITALS: BP 141/84
[2018-09-11 20:00] VITALS: BP 123/67
[2018-09-11] MEDS: ZOLPIDEM TARTRATE 5 MG TAB PO PRN (21:43)
[2018-09-11 22:00] VITALS: BP 99/58
[2018-09-12] MEDS: MORPHINE SULF 15mg ER tab PO SCH ×2 (01:00→13:15)
[2018-09-12] MEDS: InsuLIN REG 1unit/0.01ml Soln (100units/ml) SC SCH ×4 (04:40→21:54)
[2018-09-12] MEDS: ALPRAZolam 0.25 MG TAB PO PRN ×3 (04:40→16:19)
[2018-09-12] MEDS: ceFAZolin 1GM/50ML 50 ML IV SCH ×3 (04:40→21:53)
[2018-09-12] MEDS: ACCU-CHEK COMFORT CURVE STRIP VI SCH ×4 (04:41→21:54)
[2018-09-12 05:00] VITALS: BP 136/68
[2018-09-12 08:20] VITALS: BP 146/70
[2018-09-12 09:00] VITALS: BP 146/70
[2018-09-12] MEDS: CHOLESTYRAMINE 4 GM POWDER GT SCH (10:00)
[2018-09-12] MEDS: HCTZ 25 MG TAB PO SCH (10:22)
[2018-09-12] MEDS: LISINOPRIL 10 MG TAB PO SCH (10:23)
[2018-09-12] MEDS: POTASSIUM CHL 20 Meq TABLET PO SCH ×2 (10:23→21:54)
[2018-09-12] MEDS: CLOPIDOGREL BISULFATE 75 MG TAB PO SCH (10:23)
[2018-09-12] MEDS: CHOLECALCIFEROL (VITD3) 1,000 UNIT TAB PO SCH (10:24)
[2018-09-12] MEDS: FLUoxetine HCL 20 MG CAP PO SCH (10:24)
[2018-09-12] MEDS: NICOTINE 21MG/24 HR TOPICAL PATCH TD SCH (10:25)
[2018-09-12 13:00] VITALS: BP 136/80
[2018-09-12] MEDS: CYCLOBENZAPRINE HCL 10 MG TAB PO SCH (13:15)
[2018-09-12] MEDS: hydrOXYzine 25 MG TAB or CAP PO PRN ×2 (13:16→21:55)
[2018-09-12 17:00] VITALS: BP 131/67
[2018-09-12] MEDS: HYDROmorphone HCL 2 MG/ML VL IV PRN (19:57)
[2018-09-12] MEDS: ZOLPIDEM TARTRATE 5 MG TAB PO PRN (21:55)
[2018-09-12] MEDS: SODIUM CHLORIDE 0.9% 1,000 ML IV SCH (21:56)
[2018-09-12 22:00] VITALS: BP 119/64
[2018-09-13] MEDS: MORPHINE SULF 15mg ER tab PO SCH ×2 (01:00→12:25)
[2018-09-13 05:00] VITALS: BP 146/79
[2018-09-13] MEDS: InsuLIN REG 1unit/0.01ml Soln (100units/ml) SC SCH ×2 (06:23→11:30)
[2018-09-13] MEDS: ceFAZolin 1GM/50ML 50 ML IV SCH (06:23)
[2018-09-13] MEDS: HYDROmorphone HCL 2 MG/ML VL IV PRN ×2 (06:24→16:00)
[2018-09-13] MEDS: ACCU-CHEK COMFORT CURVE STRIP VI SCH ×2 (06:24→11:30)
[2018-09-13 08:00] VITALS: BP 120/64
[2018-09-13] MEDS: CHOLESTYRAMINE 4 GM POWDER GT SCH (09:02)
[2018-09-13] MEDS: LISINOPRIL 10 MG TAB PO SCH (09:08)
[2018-09-13] MEDS: POTASSIUM CHL 20 Meq TABLET PO SCH (09:09)
[2018-09-13] MEDS: HCTZ 25 MG TAB PO SCH (09:09)
[2018-09-13] MEDS: CLOPIDOGREL BISULFATE 75 MG TAB PO SCH (09:10)
[2018-09-13] MEDS: NICOTINE 21MG/24 HR TOPICAL PATCH TD SCH (09:10)
[2018-09-13] MEDS: CHOLECALCIFEROL (VITD3) 1,000 UNIT TAB PO SCH (09:10)
[2018-09-13] MEDS: FLUoxetine HCL 20 MG CAP PO SCH (09:10)
[2018-09-13 13:00] VITALS: BP 111/57
[2018-09-13] MEDS: ALPRAZolam 0.25 MG TAB PO PRN (13:44)
[2018-09-13] MEDS: CYCLOBENZAPRINE HCL 10 MG TAB PO SCH (13:44)
[2018-09-13 15:42] VITALS: BP 120/64
== END 2018-09-13 16:53 | disposition home health service (06) | DRG 862 ==
LOC: EDUNIT# 07:09 → ER 07:09 → EDBD 07:09 → TELE 07:10 → TELE-WESTW 12:25
PROVIDERS: ADMIT Internal Medicine Cardiovascular Disease; ATTEND Internal Medicine Cardiovascular Disease
DX: T81.49XA Infection following a procedure, other surgical site, initial encounter (principal); A41.9 Sepsis, unspecified organism; R55 Syncope and collapse; M32.9 Systemic lupus erythematosus, unspecified; J44.9 Chronic obstructive pulmonary disease, unspecified; I10 Essential (primary) hypertension; E11.9 Type 2 diabetes mellitus without complications; E66.9 Obesity, unspecified; E78.5 Hyperlipidemia, unspecified; M54.9 Dorsalgia, unspecified; F17.210 Nicotine dependence, cigarettes, uncomplicated; I25.10 Atherosclerotic heart disease of native coronary artery without angina pectoris; Z60.2 Problems related to living alone; Y83.8 Other surgical procedures as the cause of abnormal reaction of the patient, or of later complication, without mention of misadventure at the time of the procedure; M19.90 Unspecified osteoarthritis, unspecified site; L53.9 Erythematous condition, unspecified; Z76.5 Malingerer [conscious simulation]; Z86.711 Personal history of pulmonary embolism; Z86.73 Personal history of transient ischemic attack (TIA), and cerebral infarction without residual deficits; Z90.49 Acquired absence of other specified parts of digestive tract; Z91.19 Patient's noncompliance with other medical treatment and regimen; Z95.5 Presence of coronary angioplasty implant and graft; Z68.38 Body mass index [BMI] 38.0-38.9, adult; Z88.0 Allergy status to penicillin; Z91.040 Latex allergy status; Y92.89 Other specified places as the place of occurrence of the external cause
CPT/HCPCS: 36415; 74176; 80053; 82150; 82962; 83690; 83735; 84484; 85007; 85025; 85027; 87081; 93005; 94761; 96361; 96374; 96375; 97116; 97163; 97530; A6257; G0378; J0690; J2405

== ENCOUNTER → 2019-06-18 | Outpatient (CLI) | payer MEDICARE, OTHER ==
[2019-06-18 15:57] LABS: Urine Blood Negative /uL (Negative); Urine Specific Gravity 1.019 (1.001-1.035)
[2019-06-18 16:03] LABS: Albumin 4.1 g/dL (3.4-5.0); Calcium 9.6 mg/dL (8.5-10.1); Potassium 4.2 mmol/L (3.5-5.1)
[2019-06-18 16:07] LABS: BUN/Creatinine Ratio 13.3; Basophils # (auto) 0.1 uL; Basophils % (auto) 0.9 % (0.0-2.0); Bilirubin, Total 0.7 mg/dL (0.2-1.0); Eosinophils # (auto) 0.3 uL; Eosinophils % (auto) 2.2 % (0.0-7.0); Hematocrit 43.2 % (36.0-46.0); Hemoglobin 14.3 g/dL (12.2-16.2); Lymphocytes # (auto) 3.8 uL; Lymphocytes % (auto) 28.9 % (10.0-50.0); Mean Corpuscular Hemoglobin 32.1 pg (28.0-32.0); Mean Corpuscular Hgb Conc. 33.1 g/dL (32.0-36.0); Monocytes # (auto) 0.9 uL; Monocytes % (auto) 6.7 % (0.0-12.0); Neutrophils # (auto) 8.1 uL; Neutrophils % (auto) 61.3 % (37.0-80.0); Nucleated Red Blood Cells % 0.1 %; Platelet Count (auto) 313 10^3/uL (140-450); Red Blood Cells 4.46 10^6/uL (4.0-5.20); Red Cell Distribution Width 13.6 % (11.8-14.3); Total Protein 8.3 g/dL (6.4-8.2); White Blood Cell 13.2 10^3/uL (4.4-10.8)
[2019-06-18 16:12] LABS: Free T4 (Free Thyroxine) 1.07 ng/dL (0.89-1.76)
== END | disposition home or self-care (01) ==
LOC: LAB 13:39
PROVIDERS: ATTEND Internal Medicine Cardiovascular Disease
DX: E03.9 Hypothyroidism, unspecified (principal); K90.9 Intestinal malabsorption, unspecified; N39.0 Urinary tract infection, site not specified; D51.9 Vitamin B12 deficiency anemia, unspecified; Z79.899 Other long term (current) drug therapy
CPT/HCPCS: 36415; 80053; 80061; 81003; 82306; 82607; 83036; 84439; 84443; 85025; 87086

== ENCOUNTER → 2019-07-02 | Outpatient (CLI) | payer MEDICARE, OTHER | END | disposition home or self-care (01) | LOC: Rad HDHVI 14:32 | PROVIDERS: ATTEND Internal Medicine Cardiovascular Disease | DX: I67.2 Cerebral atherosclerosis (principal); I63.81 Other cerebral infarction due to occlusion or stenosis of small artery; J44.9 Chronic obstructive pulmonary disease, unspecified; G31.9 Degenerative disease of nervous system, unspecified; I10 Essential (primary) hypertension | CPT/HCPCS: 70450; 93306 ==

== ENCOUNTER → 2019-11-24 | Outpatient (CLI) | payer MEDICARE, OTHER ==
[~2019-11-24] VITALS: Ht 170.2 cm; Wt 104.3 kg
[~2019-11-24] MED LIST changes: +ADENOSINE 90 MG/30 ML INJ IV ONE; +ADENOSINE IV ONE; +GIVE UN DILUTED IV ONE; +ONDANSETRON HCL 4 MG/2 ML VIAL ONE; +diphenhdrAMINE HCL 50 MG/1 ML VL ONE; +methylPREDNISolone SOD SUCC 125 MG/2 ML VL ONE
[2019-11-24 12:12] LABS: Basophils # (auto) 0.1 uL; Basophils % (auto) 1.2 % (0.0-2.0); Eosinophils # (auto) 0.4 uL; Eosinophils % (auto) 4.3 % (0.0-7.0); Hematocrit 38.7 % (36.0-46.0); Lymphocytes # (auto) 3.4 uL; Mean Corpuscular Hemoglobin 32.3 pg (28.0-32.0); Mean Corpuscular Hgb Conc. 33.5 g/dL (32.0-36.0); Mean Corpuscular Volume 96.5 fL (80.0-100.0); Monocytes # (auto) 0.7 uL; Monocytes % (auto) 6.7 % (0.0-12.0); Neutrophils # (auto) 5.6 uL; Neutrophils % (auto) 54.8 % (37.0-80.0); Platelet Count (auto) 329 10^3/uL (140-450); Red Blood Cells 4.01 10^6/uL (4.0-5.20); Red Cell Distribution Width 13.5 % (11.8-14.3); White Blood Cell 10.2 10^3/uL (4.4-10.8)
[2019-11-24 12:28] LABS: Albumin 3.5 g/dL (3.4-5.0); BUN/Creatinine Ratio 11.4; Bilirubin, Total 0.6 mg/dL (0.2-1.0); Calcium 9.6 mg/dL (8.5-10.1); Total Protein 7.6 g/dL (6.4-8.2)
[2019-11-26 02:31] LABS: Free T4 (Free Thyroxine) 0.94 ng/dL (0.89-1.76)
== END | disposition home or self-care (01) ==
LOC: Rad HDHVI 09:30
PROVIDERS: ATTEND Internal Medicine Cardiovascular Disease
DX: E03.9 Hypothyroidism, unspecified (principal); K90.9 Intestinal malabsorption, unspecified; D51.9 Vitamin B12 deficiency anemia, unspecified; I25.10 Atherosclerotic heart disease of native coronary artery without angina pectoris; M62.9 Disorder of muscle, unspecified; R06.02 Shortness of breath; R07.89 Other chest pain; R00.2 Palpitations; R55 Syncope and collapse; Z79.899 Other long term (current) drug therapy
CPT/HCPCS: 36415; 78452; 80053; 80061; 82306; 82607; 83036; 84439; 84443; 85025; 86225; 86235; 93005; 96374; 96375; A9500; J0153; J1200; J2405; J2930

== ENCOUNTER → 2019-12-28 | Outpatient (CLI) | payer MEDICARE, OTHER ==
[~2019-12-28] MED LIST changes: -ADENOSINE 90 MG/30 ML INJ IV ONE; -ADENOSINE IV ONE; -GIVE UN DILUTED IV ONE; -ONDANSETRON HCL 4 MG/2 ML VIAL ONE; +READI-CAT 2 (BARIUM SULF)(VANILLA SMOOTHIE) 450ML ONE; -diphenhdrAMINE HCL 50 MG/1 ML VL ONE; -methylPREDNISolone SOD SUCC 125 MG/2 ML VL ONE
== END | disposition home or self-care (01) ==
LOC: Rad HDHVI 08:28
PROVIDERS: ATTEND Internal Medicine Cardiovascular Disease
DX: I70.0 Atherosclerosis of aorta (principal); K44.9 Diaphragmatic hernia without obstruction or gangrene; M41.86 Other forms of scoliosis, lumbar region; K57.30 Diverticulosis of large intestine without perforation or abscess without bleeding; R10.9 Unspecified abdominal pain; I10 Essential (primary) hypertension; M47.9 Spondylosis, unspecified; M32.9 Systemic lupus erythematosus, unspecified; Z90.49 Acquired absence of other specified parts of digestive tract
CPT/HCPCS: 74176

== ENCOUNTER → 2020-01-05 | Outpatient (CLI) | payer MEDICARE, OTHER ==
[~2020-01-05] MED LIST changes: -READI-CAT 2 (BARIUM SULF)(VANILLA SMOOTHIE) 450ML ONE
== END | disposition home or self-care (01) ==
LOC: Rad HDHVI 08:08
PROVIDERS: ATTEND Internal Medicine Cardiovascular Disease
DX: I73.9 Peripheral vascular disease, unspecified (principal)
CPT/HCPCS: 93925

== ENCOUNTER → 2021-02-23 | Outpatient (CLI) | payer MEDICARE, OTHER ==
[~2021-02-23] MED LIST changes: -CLOP75TA41 PO; +CLOP75TA70 PO; +CYCL10TA6 PO; -CYCL1TAB18 PO
[2021-02-23 15:35] LABS: Basophils # (auto) 0.1 10 ^3/uL (0-0.2); Basophils % (auto) 1.3 % (0.0-2.0); Eosinophils # (auto) 0.2 10 ^3/uL (0-0.8); Eosinophils % (auto) 2.5 % (0.0-7.0); Hematocrit 36.8 % (36.0-46.0); Hemoglobin 12.2 g/dL (12.2-16.2); Lymphocytes # (auto) 2.4 10 ^3/uL (0.4-5.4); Lymphocytes % (auto) 26.8 % (10.0-50.0); Mean Corpuscular Hemoglobin 32.6 pg (28.0-32.0); Mean Corpuscular Hgb Conc. 33.1 g/dL (32.0-36.0); Mean Corpuscular Volume 98.6 fL (80.0-100.0); Monocytes # (auto) 0.8 10 ^3/uL (0-1.3); Monocytes % (auto) 8.7 % (0.0-12.0); Neutrophils # (auto) 5.5 10 ^3/uL (1.6-8.6); Neutrophils % (auto) 60.7 % (37.0-80.0); Nucleated Red Blood Cells % 0.1 %; Platelet Count (auto) 347 10^3/uL (140-450); Red Blood Cells 3.74 10^6/uL (4.0-5.20); Red Cell Distribution Width 13.7 % (11.8-14.3); Urine Blood Negative /uL (Negative); Urine Specific Gravity 1.017 (1.001-1.035)
[2021-02-23 15:43] LABS: Calcium 9.8 mg/dL (8.5-10.1); Potassium 4.5 mmol/L (3.5-5.1)
[2021-02-23 15:45] LABS: BUN/Creatinine Ratio 15.4
== END | disposition home or self-care (01) ==
LOC: LAB 12:47
PROVIDERS: ATTEND Internal Medicine Cardiovascular Disease
DX: N39.0 Urinary tract infection, site not specified (principal); D64.9 Anemia, unspecified; I10 Essential (primary) hypertension
CPT/HCPCS: 36415; 80048; 81003; 85025

== ENCOUNTER → 2022-07-08 | Outpatient (CLI) | payer MEDICARE, OTHER ==
[~2022-07-08] MED LIST changes: +CYCL-839 PO; -CYCL10TA6 PO
[2022-07-08 17:11] LABS: Urine Blood Negative /uL (Negative); Urine Specific Gravity 1.018 (1.001-1.035)
[2022-07-08 17:23] LABS: Basophils # (auto) 0.1 10 ^3/uL (0-0.2); Basophils % (auto) 0.7 % (0.0-2.0); Eosinophils # (auto) 0.2 10 ^3/uL (0-0.8); Eosinophils % (auto) 1.5 % (0.0-7.0); Hematocrit 41.5 % (36.0-46.0); Hemoglobin 13.7 g/dL (12.2-16.2); Lymphocytes # (auto) 3.3 10 ^3/uL (0.4-5.4); Lymphocytes % (auto) 30.7 % (10.0-50.0); Mean Corpuscular Hemoglobin 31.4 pg (28.0-32.0); Mean Corpuscular Volume 95.1 fL (80.0-100.0); Monocytes # (auto) 0.9 10 ^3/uL (0-1.3); Monocytes % (auto) 7.9 % (0.0-12.0); Neutrophils # (auto) 6.4 10 ^3/uL (1.6-8.6); Neutrophils % (auto) 59.2 % (37.0-80.0); Nucleated Red Blood Cells % 0.1 %; Red Blood Cells 4.36 10^6/uL (4.0-5.20); Red Cell Distribution Width 13.5 % (11.8-14.3); White Blood Cell 10.8 10^3/uL (4.4-10.8)
[2022-07-08 17:24] LABS: Albumin 3.8 g/dL (3.4-5.0); Potassium 4.1 mmol/L (3.5-5.1)
[2022-07-08 17:32] LABS: BUN/Creatinine Ratio 10.1; Bilirubin, Direct 0.1 mg/dL (0-0.2); Bilirubin, Total 0.6 mg/dL (0.2-1.0); Calcium 9.7 mg/dL (8.5-10.1); Total Protein 7.7 g/dL (6.4-8.2)
== END | disposition home or self-care (01) ==
LOC: Rad HDHVI 15:11
PROVIDERS: ATTEND Internal Medicine Cardiovascular Disease
DX: I10 Essential (primary) hypertension (principal); E55.9 Vitamin D deficiency, unspecified; D64.9 Anemia, unspecified; E11.9 Type 2 diabetes mellitus without complications; R00.2 Palpitations; R53.1 Weakness; R30.0 Dysuria; R06.02 Shortness of breath; I70.0 Atherosclerosis of aorta
CPT/HCPCS: 36415; 71046; 80048; 80061; 80076; 81003; 82306; 83036; 84443; 85025; 87086

== ENCOUNTER → 2022-07-17 | Outpatient (CLI) | payer MEDICARE, OTHER | END | disposition home or self-care (01) | LOC: Rad HDHVI 14:52 | PROVIDERS: ATTEND Internal Medicine Cardiovascular Disease | DX: I08.1 Rheumatic disorders of both mitral and tricuspid valves (principal); R07.89 Other chest pain; I50.43 Acute on chronic combined systolic (congestive) and diastolic (congestive) heart failure | CPT/HCPCS: 93306 ==